=== PATIENT | male | born 1950 | race Caucasian/White ===

== ENCOUNTER 2017-03-18 08:26 | Emergency (ER) | payer OTHER ==
[~2017-03-18] VITALS: Ht 175.3 cm; Wt 68.0 kg
[~2017-03-18 08:26] MED LIST: ATORVASTATIN CA40 MG PO; BUFFERIN LOW DO81 MG PO; COZAAR 100MG T100 MG PO; COZAAR 25MG TAB25 MG PO; COZAAR 50MG TAB50 MG PO; Dulcolax PO; LIPITOR80 MG PO; LOPRESSOR50 MG PO; NORVASC5 MG PO; PLAVIX 75MG TAB75 MG PO
[2017-03-18 08:31] VITALS: BP 135/80
--- NOTE | 2017-03-18 08:37 | ED HAND/WRIST INJURY COMPLAINT ---
History of Present Illness General Chief Complaint: Laceration Procedure Stated Complaint: LAC TO RIGHT THUMB Source: patient Exam Limitations: no limitations Vital Signs & Intake/Output Vital Signs & Intake/Output Vital Signs Date Time Temp Pulse Resp B/P B/P Pulse O2 O2 Flow FiO2 Mean Ox Delivery Rate 03/18 0831 98.2 94 20 135/80 98 Room Air Room Air Allergies Coded Allergies: NO KNOWN ALLERGIES (07/09/15) Reconcile Medications Amlodipine Besylate 10 MG TABLET 1 TAB PO DAILY HEART (Reported) Aspirin (Aspirin*) 81 MG TAB.CHEW 1 TAB PO DAILY HEART HEALTH (Reported) Dipyridamole W/ Aspirin (Aggrenox 25 MG-200 MG Capsule) 25 MG-200 MG CPMP.12HR 1 CAP PO BID HEART (Reported) Lisinopril 10 MG TABLET 1 TAB PO DAILY HEART (Reported) Pantoprazole Sodium 40 MG TABLET.DR 1 TAB PO DAILY GI (Reported) Triage Note: PT TO ED S/P CUT RIGHT THUMB WITH SAW LAST NIGHT, LAST TETANUS: 1 MONTH AGO. Triage Nurses Notes Reviewed? yes Occurred: yesterday Duration: hour(s): (12), constant, continues in ED Timing: single episode today Injury Environment: home Severity: mild, moderate Severity Numbers: 6 Pain/Injury Location: Right: 1st finger. Context: laceration Method of Injury: incised, laceration No Modifying Factors: none HPI: 66-year-old male with past medical history of coronary artery disease presents for evaluation of a laceration to the right thumb. Last night around 8 PM patient was working in his wood shop when he accidentally cut his thumb with a table saw. Patient states there is a laceration to the palmar aspect of the distal segment of the right thumb. Patient reports pain in the area of the thumb that is worse with any type of movement or touching the area. He rates the pain as a 6 out of 10. He has not taken any medication for the pain. He takes aspirin and Plavix and states that the finger bled a lot. He is up-to- date on tetanus. He denies any other injuries including numbness, tingling, wrist pain, or any other associated symptoms. (SEEMA HECTOR PA-C) Past History Travel History Traveled to [place] past 21 day No Medical History Any Pertinent Medical History? 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 No (SEEMA HECTOR PA-C) Review of Systems Review of Systems Constitutional: Reports: no symptoms. EENTM: Reports: no symptoms. Respiratory: Reports: no symptoms. Cardiovascular: Reports: no symptoms. GI: Reports: no symptoms. Genitourinary: Reports: no symptoms. Musculoskeletal: Reports: see HPI (rt thumb pain). Skin: Reports: see HPI (laceration ). Neurological/Psychological: Reports: no symptoms. Hematologic/Endocrine: Reports: no symptoms. Immunologic/Allergic: Reports: no symptoms. All Other Systems: Reviewed and Negative (SEEMA HECTOR PA-C) Physical Exam Physical Exam General Appearance: well developed/nourished, no apparent distress, alert, awake Head: atraumatic, normal appearance Eyes: Bilateral: normal appearance, PERRL, EOMI. Ears, Nose, Throat: normal pharynx, normal ENT inspection, hearing grossly normal Neck: normal inspection, supple, full range of motion Cardiovascular/Respiratory: normal breath sounds, normal peripheral pulses, regular rate/rhythm, no respiratory distress Back: normal inspection, normal range of motion, no vertebral tenderness Shoulder Left: normal range of motion, normal inspection Shoulder Right: normal range of motion, normal inspection Elbow Left: normal range of motion, normal inspection Elbow Right: normal range of motion, normal inspection Forearm Left: normal range of motion, normal inspection Forearm Right: normal range of motion, normal inspection Wrist Left: normal range of motion, normal inspection Wrist Right: normal range of motion, normal inspection Hand Left: normal inspection, normal range of motion Hand Right: normal range of motion, lacerations, 1st finger, there is a 2.5cm linear laceration located on the distal segment of the palacios aspect of the rt thumb. the edges are jagged and approximatly 0.5cm wide. there is some granulation tissue present. no fb. full ROM. neuro-vascular supply intact, Neurologic/Tendon: normal sensation, normal motor functions, normal tendon functions, responds to pain, no evidence tendon injury, no pulse deficit Skin: intact, normal color, warm/dry Lymphatic: no anterior cervical tacho (SEEMA HECTOR PA-C) Progress Differential Diagnosis: abscess, cellulitis, contusion, dislocation, fracture, sprain, laceration, fb Plan of Care: Patient seen and evaluated. He has a 2.5 cm laceration located on the palmar aspect of the distal segment of the right thumb. It is linear with jagged edges. The laceration occurred approximately 12 hours ago and it is no longer bleeding. It will need to be debridement in order to have proper closure. The laceration is also very wide. Granulation tissue was depleted in order to expose fresh tissue and have the wound bleeding again. Advised patient that even with debridement he may not have a complete closure and the wound may need to close by secondary tension. The area was thoroughly flushed with sterile saline. Betadine prep. Lidocaine without epinephrine was applied for local pain control. 9 simple interrupted 4-0 nylon sutures were applied to approximate the wound. Patient tolerated well without any complications. Discussed wound care procedures with patient. Apply bacitracin for 3 days Tylenol or ibuProfen as needed for pain. Complete a wound check with your primary care doctor in 3 or 4 days. Discussed treatment plan with patient patient is nontoxic-appearing and agrees with the plan. (SEEMA HECTOR PA-C) Departure Departure Disposition: HOME OR SELF CARE Condition: Stable Clinical Impression Primary Impression: Laceration of thumb Qualifiers: Encounter type: initial encounter Damage to nail status: without damage Foreign body presence: without foreign body Laterality: right Qualified Code: S61.011A - Laceration without foreign body of right thumb without damage to nail, initial encounter Referrals: RJ POWELL MD (PCP/Family) Additional Instructions: Keep the area clean and dry. Change dressing once daily and apply bacitracin for the next 3 or 4 days. After day for he consented to leave the area open to air dry. If you to be doing something that may cause dirt to get in the wound you want to keep it covered. Keep the area covered when showering. Use Tylenol as needed for pain. Monitor for signs of infection such as redness swelling discharge or pain. Follow up with her primary care doctor in 3 or 4 days for wound check. Return to the emergency department any concerns. The sutures will be removed in 7-10 days you can come back here or with your primary care doctor for suture removal. Departure Forms: Customer Survey General Discharge Information (SEEMA HECTOR PA-C) PA/SUPERINTENDENT TESTS Co-Sign Statement Statement: ED Attending supervision documentation- [] I saw and evaluated the patient. I have also reviewed all the pertinent lab results and diagnostic results. I agree with the findings and the plan of care as documented in the PA's/SUPERINTENDENT TESTS's documentation. [X] I have reviewed the ED Record and agree with the PA's/SUPERINTENDENT TESTS's documentation. [] Additions or exceptions (if any) to the PAs/SUPERINTENDENT TESTS's note and plan are summarized below: [] (DOLORES COSTA,YING) Procedures Laceration/Wound Repair Laceration/Wound Repair: Wound Location: upper extremity (rt thumb lac) Wound's Depth, Shape: linear, subcutaneous Wound Length (cm): 2.5 Wound Explored: clean, no foreign body removed, irrigated extensively Irrigated w/ Saline (ccs): 500 Betadine Prep? Yes Anesthesia: digit block, 1% lidocaine Volume Anesthetic (ccs): 4 Wound Debrided: moderate Wound Repaired With: sutures Suture Size/Type: 4:0, nylon Number of Sutures: 9 Layer Closure? No Sterile Dressing Applied: Yes Splint Applied? No Tetanus Status: up to date (SEEMA HECTOR PA-C)
[2017-03-18] MEDS ORDERED: LISINOPRIL10 M1 PO (09:31)
[2017-03-18] MEDS ORDERED: PANTOPRAZOLE SO40 M1 PO (09:31)
[2017-03-18] MEDS ORDERED: AGGRENOX 25 MG1 EACH PO (09:31)
[2017-03-18] MEDS ORDERED: AMLODIPINE BESY10 M1 PO (09:32)
[2017-03-18] MEDS ORDERED: ASPIRIN81 M4 PO (09:34)
== END 2017-03-18 09:42 ==
LOC: ERH 08:26
DX: S61.011A Laceration without foreign body of right thumb without damage to nail, initial encounter (principal); W31.2XXA Contact with powered woodworking and forming machines, initial encounter; Y93.89 Activity, other specified; Y92.009 Unspecified place in unspecified non-institutional (private) residence as the place of occurrence of the external cause